=== PATIENT | male | born 1990 | race Caucasian/White ===

== ENCOUNTER 2018-08-14 08:55 | Emergency (ER) | payer OTHER ==
[~2018-08-14] VITALS: Ht 170.2 cm; Wt 95.5 kg
[2018-08-14] MEDS ORDERED: FLUORESCEIN SODIUM 1 MG STRIP ONE (10:45)
[2018-08-14] MEDS ORDERED: PROPARACAINE HCL 0.5% 15 ML OPHTHALMIC SOLUTION OD ONE (10:45)
[2018-08-14 11:01] VITALS: BP 134/72
== END 2018-08-14 11:04 | disposition home or self-care (01) ==
LOC: EMS 08:56
DX: S05.01XA Injury of conjunctiva and corneal abrasion without foreign body, right eye, initial encounter (principal); X58.XXXA Exposure to other specified factors, initial encounter; Y93.89 Activity, other specified; Y92.89 Other specified places as the place of occurrence of the external cause; Y99.8 Other external cause status